=== PATIENT | female | born 1975 | race Caucasian/White ===

== ENCOUNTER 2016-08-07 07:55 | Day surgery (SDC) | payer OTHER ==
--- NOTE | 2016-07-31 15:50 | HP ---
DATE OF ADMISSION: 08/07/2016. This patient is scheduled for Same Day Surgery admission by Dr. Magana. DATE OF PREOPERATIVE HISTORY AND PHYSICAL EXAMINATION: Saturday, July 30, 2016. ATTENDING SURGEON: Dr. Zachary Magana (dictated by Regi Adams NP). CHIEF COMPLAINT: Right upper quadrant abdominal pain. HISTORY OF PRESENT ILLNESS: The patient is a 40-year-old female known to Dr. Magana, status post laparoscopic Nikole-en-Y gastric bypass 09/06/2015. More recently, she has had several episodes of right upper quadrant abdominal pain radiating to her back and across her abdomen. The episodes last approximately 20 minutes. She denies any nausea or vomiting. She has loose bowel movements normally and this was unchanged. She denied any fever or chills or dysuria, and does not recall any provoking or palliating factors. She denies any jaundice, tea- colored urine, or david-colored stools. She underwent gallbladder ultrasound which revealed cholelithiasis, but no acute changes, no pericholecystic fluid or gallbladder wall thickening. Dr. Magana has reviewed the findings with the patient and has recommended laparoscopic cholecystectomy as a same day surgery procedure. Dr. Magana discussed the nature of the procedure, the rationale for the procedure, the relevant risks and benefits, and today I reviewed the typical postoperative care and recovery. The patient has had a chance to ask questions and stated that she understands the information and is satisfied with the answers given to her questions. She will sign surgical consent on the day of surgery. PAST MEDICAL HISTORY: Morbid obesity; mild obstructive sleep apnea, resolved; type 2 diabetes, resolved; borderline hypertension, resolved. PAST SURGICAL HISTORY: Laparoscopic Nikole-en-Y gastric bypass by Dr. Magana 01/2016, she has lost 88 pounds postoperatively; D and C and section times two, both via low transverse incision. MEDICATIONS: 1. Multivitamins, Flintstones chewable two tablets daily. 2. Vitamin B12 daily. 3. Sertraline 50 mg p.o. daily. ALLERGIES: No known drug allergies. FAMILY HISTORY: Negative for anesthesia complications, bleeding tendencies, or clotting disorders. SOCIAL HISTORY: She is and has two children. 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 She denies the use of tobacco and rarely drinks alcohol and denies the use of other substances. REVIEW OF SYSTEMS: She denies any recent illnesses. She denies any respiratory symptoms. She denies any history of anesthesia complications. She denies any cardiovascular symptoms. She denies any history of deep vein thrombosis or pulmonary embolism. She denies any other gastrointestinal symptoms, other than described in history of present illness. She denies any genitourinary symptoms. She denies any bleeding tendencies and has never received a blood transfusion. She denies any neurological conditions or complaints. Her last menstrual period was around the first of July 2016 and her periods are regular. She is up-to-date within the past year for breast and pelvic exams. PHYSICAL EXAMINATION GENERAL: The patient is a 40-year-old female, well-developed, well-nourished, in no acute distress. VITAL SIGNS: Height 62 inches, weight 139 pounds. Blood pressure 120/76, pulse 72 and regular, respiratory rate 16, temperature 98.8 tympanic. Body mass index 25.4. SKIN: Warm, dry, anicteric. HEENT: Benign, anicteric sclerae. NECK: Supple, no cervical lymphadenopathy, no thyromegaly. BACK: No CVA tenderness. LUNGS: Breath sounds bilaterally clear and equal. HEART: Regular rate and rhythm. No murmurs or rubs appreciated. ABDOMEN: Active bowel sounds, soft and nondistended. Nontender throughout. Negative Eagle sign. No obvious masses, organomegaly, or ventral hernias. Surgical scars are present. EXTREMITIES: Warm without edema or skin ulcerations. PELVIC: Exam deferred. RECTAL: Exam deferred. NEUROLOGIC: Alert and oriented times three, steady gait. IMPRESSION: Symptomatic cholelithiasis. PLAN: Same Day Surgery admission to Dr. Magana' service on Monday, August 072016 for laparoscopic cholecystectomy. SWETHA ADAMS NP CC: Dr. Wasserman* [id number]/[facility] #: [id number] MTDD
[~2016-08-07 07:55] MED LIST: Buffered Lidocaine 1% SYR 3ML* 3 ML/SYR SYRINGE INTRADERM ONE
[2016-08-07] MEDS ORDERED: ceFAZolin 2 GM PREMIX (*) 2 GM/50 ML BAG IVPB ONE (08:15)
[2016-08-07] MEDS ORDERED: Buffered Lidocaine 1% SYR 3ML* 3 ML/SYR SYRINGE ONE (08:15)
[2016-08-07 08:39] LABS: UR Preg Internal Control QC Line Present
[2016-08-07] MEDS ORDERED: fentaNYL* 50 MCG/ML 2 ML VIAL (100 MCG VIAL) ONE ×4 (09:27→13:47)
[2016-08-07] MEDS ORDERED: Midazolam* 1 MG/ML 2 ML VIAL (2 MG) ONE (09:27)
[2016-08-07] MEDS ORDERED: Bupivacaine 0.5% W/EPI SDV* 30 ML VIAL ONE (10:18)
[2016-08-07] MEDS ORDERED: Ketorolac INJ* 30 MG/ML 1 ML VIAL ONE (10:38)
[2016-08-07] MEDS ORDERED: Lidocaine 2% PF * 5 ML VIAL ONE (10:38)
[2016-08-07] MEDS ORDERED: Propofol* 10 MG/ML 20 ML BTL IV PUSH ONE (10:38)
[2016-08-07] MEDS ORDERED: Dexamethasone IV* 4 MG/ML 1 ML (4 MG) ONE (10:38)
[2016-08-07] MEDS ORDERED: Rocuronium* 10 MG/ML VIAL ONE (10:38)
[2016-08-07] MEDS ORDERED: Ondansetron INJ* 2 MG/ML VIAL ONE (10:38)
[2016-08-07] MEDS ORDERED: Famotidine IV* 10 MG/ML 2 ML (20 mg) ONE (10:38)
[2016-08-07] MEDS ORDERED: Acetaminophen TAB* 325 MG PO PRN (10:51)
[2016-08-07] MEDS ORDERED: DiMENhydriNATE IV* 50 MG/ML VIAL IV PUSH PRN (10:51)
[2016-08-07] MEDS ORDERED: HYDROcodone/ACETAMIN 5-325 MG* 1 TAB PO PRN (10:51)
[2016-08-07] MEDS ORDERED: Ondansetron INJ* 2 MG/ML VIAL IV PRN (10:51)
[2016-08-07] MEDS ORDERED: PROCHLORPERAZINE INJ 5 MG/ML 2 ML VIAL IV PRN (10:51)
[2016-08-07] MEDS ORDERED: HYDROcodone/ACET. 7.5/325 LIQ* 15 ML UDC PO PRN (12:03)
[2016-08-07] MEDS: fentaNYL* 50 MCG/ML 2 ML VIAL (100 MCG VIAL) IV PRN ×4 (12:13→12:28)
[2016-08-07] MEDS ORDERED: HYDROcodone/ACETAMIN 5-325 MG* 1 TAB ONE ×2 (13:18)
[2016-08-07 13:30] VITALS: BP 129/81
--- NOTE | 2016-08-08 04:24 | OP ---
DATE OF OPERATION: 08/07/16 [facility] DATE OF : 77 SURGEON: Zachary Magana MD PROCESS MECHANIC: Dr. Henson. ANESTHESIOLOGIST: Dr. Young. ANESTHESIA: General endotracheal. PRE-OP DIAGNOSIS: Symptomatic cholelithiasis. POST-OP DIAGNOSIS: Symptomatic cholelithiasis and internal hernia. OPERATIVE PROCEDURE: Laparoscopic cholecystectomy and laparoscopic repair of internal hernia. ESTIMATED BLOOD LOSS: Minimal. IV FLUIDS: 1.5 L crystalloids. SPECIMEN: Gallbladder. DRAINS: None. COMPLICATIONS: None. COUNTS: The instrument, needle, and sponge counts were correct. DESCRIPTION OF PROCEDURE: The patient was brought to the operating room, placed on table supine. Sequential compression devices were placed on both lower extremities. General anesthesia was administered. The abdomen was prepped and draped in the usual sterile fashion. She received appropriate intravenous antibiotics. Time-out was performed. Local anesthetic was infiltrated at the incision sites prior to each incision. The pneumoperitoneum was achieved using a Veress needle through a right upper quadrant incision after tenting up the rectus fascia. Approximately 50 mmHg with CO2 the Veress needle was removed and a 5 mm optical trocar was used to access the peritoneal cavity. Inspection of the underlying viscera revealed no injuries. Under direct visualization, 5 mm trocars were placed in the subxiphoid position and 2 additionally in the right upper quadrant laterally. The gallbladder was identified. It did not appear to be acutely inflamed. It was retracted superiorly by grasping the fundus laterally and inferiorly by grasping the infundibulum. The peritoneum investing the gallbladder was dissected away using a combination of sharp and blunt dissection cautery. Medial and lateral dissection was performed along the infundibular cystic duct junction and the cystic duct was identified. Dissection then proceeded along the medial aspect of the gallbladder to identify the cystic artery. Both the cystic artery and cystic duct were each bluntly dissected out and a critical view obtained. The cystic artery and cystic duct were doubly clipped and divided and then the gallbladder was freed from its attachments to the liver using the electrocautery and staying in an avascular plane. There was an inadvertent entry into the gallbladder and spillage of bile was controlled with direct pressure and then use of the endoscopic suction. This was used to evacuate the gallbladder of all bile and allowed to decompress. At that point, the gallbladder was freed using the cautery and the gallbladder was removed from the abdomen and submitted as pathology. Hemostasis of the gallbladder bed was assured. Clips were noted to be intact. At this time, a decision was made to review the gastric bypass anatomy. The inspection of the liver revealed a gastric jejunal anastomosis to be normal in appearance. The liver was traced down to the jejunojejunostomy. There was a hernia defect behind the alimentary limb. There was no hernia defect at the jejunojejunostomy mesenteric site. The small bowel was run distally all the way to the ileum and no abnormalities were noted. To complete the repair of the internal hernia, the peritoneum of the Nikole limb was tacked to the peritoneum of the transverse colon using interrupted 2-0 silks. Subsequently after assuring hemostasis, the ports were removed, carbon dioxide was released. The wounds were closed with 4-0 Monocryl to approximate the skin edges. Steri-Strips were applied. The patient tolerated the procedure well. He was extubated and transferred to Recovery in stable condition. CC: Karthik Wasserman MD* [id number]/[facility] #: [id number] MANUEL
== END 2016-08-07 14:12 | disposition home or self-care (01) ==
LOC: OR 07:55
PROVIDERS: ATTEND Surgery
DX: K80.10 Calculus of gallbladder with chronic cholecystitis without obstruction (principal); K45.8 Other specified abdominal hernia without obstruction or gangrene; Z98.84 Bariatric surgery status; K76.0 Fatty (change of) liver, not elsewhere classified
CPT/HCPCS: 81025; 88304; C1776; J0690; J1100; J1885; J2250; J2405; J2704; J3010

== ENCOUNTER 2017-09-02 07:54 | Emergency (ER) | payer OTHER ==
[2017-09-02] MEDS ORDERED: HYDROcodone/ACETAMIN 5-325 MG* 1 TAB PO ONE (08:33)
--- NOTE | 2017-09-02 09:27 | RAD ---
HISTORY: Coccygeal pain, status post trauma COMPARISONS: None VIEWS: 3, frontal, outlet, and lateral views of the sacrum and coccyx FINDINGS: BONE DENSITY: Normal. BONES: There is linear lucency consistent with a nondisplaced transverse fracture of the first ostial vertebral body. There is anterolateral marginal osteophyte formation at L5-S1 with mild reactive end plate changes. JOINTS: There is no arthropathy. ALIGNMENT: There is no dislocation. SOFT TISSUES: Unremarkable. OTHER FINDINGS: There is loss of intervertebral disc height. IMPRESSION: NONDISPLACED TRANSVERSE COCCYGEAL FRACTURE. DEGENERATIVE DISC DISEASE AT L5-S1.
[2017-09-02 10:34] VITALS: BP 133/91
--- NOTE | 2017-09-02 11:34 | UC ---
Danial Thorne Jennifer, scribed for Ashley Haji DO on 09/02/17 at 0935 . Back Pain HPI - HPI Summary HPI Summary: The patient is a 41 year old female who presents to with pain in her tail bone and right butt after a sledding accident at 17:00 yesterday. The patient reports the pain as a 7 or 8/10 and that standing aggravates the pain. She is able to ambulate. - History of Current Complaint Chief Complaint: UCBackPain Stated Complaint: TAIL BONE INJURY Time Seen by Provider: 09/02/17 08:28 Hx Obtained From: Patient Hx Last Menstrual Period: 3 weeks ago Onset/Duration: Sudden Onset, Lasting Hours - Began last night at 17:00 - 16 hours ago, Still Present Timing: Constant Severity Initially: Moderate Severity Currently: Moderate Pain Intensity: 8 Pain Scale Used: 0-10 Numeric Back Pain: Is Discrete @ - Tail pain and right butt Aggravating Factor(s): Other - Standing Alleviating Factor(s): Rest Associated Signs And Symptoms: Positive: Other - Pain in tail bone and right butt - Allergies/Home Medications Allergies/Adverse Reactions: Allergies Allergy/AdvReac Type Severity Reaction Status Date / Time morphine Allergy Severe Anxiety Verified 09/02/17 08:06 mold Allergy Mild See Comment Verified 09/02/17 08:06 pollen extracts Allergy Mild See Comment Verified 09/02/17 08:06 Home Medications: Home Medications Acetaminophen [Tylenol Extra Strength] 2 tab PO Q4HR PRN 09/02/17 [History Confirmed 09/02/17] PMH/Surg Hx/FS Hx/Imm Hx Previously Healthy: Yes - Used to have HTN, DM, but no longer after bariatric surgery - Surgical History Surgical History: Yes Surgery Procedure, Year, and Place: c-sect x2. gastric bypass 08/2015. - CHOLECYTECTOMY. 2007 [facility] C - Family History Known Family History: Positive: Diabetes - Father - Social History Alcohol Use: None Substance Use Type: None Smoking Status (MU): Never Smoked Tobacco - Immunization History Most Recent Influenza Vaccination: 2014 Most Recent Tetanus Shot: UNKNOWN Most Recent Pneumonia Vaccination: NONE Review of Systems Constitutional: Negative - Chills Musculoskeletal: Other: - Pain in tail bone and right buttock All Other Systems Reviewed And Are Negative: Yes Physical Exam - Summary Physical Exam Summary: Appearance: Well-Appearing, No Pain Distress, Well-Nourished Eyes: conjunctiva clear, no discharge ENT: Hearing grossly normal, no muffled/hoarse voice. Neck: Normal, Supple Respiratory/Lung Sounds: Lungs clear, Normal breath sounds, No respiratory distress, No accessory muscle use Cardiovascular: RRR, No murmur Abdomen: Nontender, Soft, no guarding, not distended Bowel Sounds: Present Musculoskeletal: Tender on the coccyx. I palpated the ilium and ischium which did not elicit any tenderness. Hips are stable. Exquisite tenderness was elicited on the coccyx itself. Neurological: Alert, muscle tone normal Psychiatric:Normal, age appropriate behavior Skin: Normal, Warm, Dry, Normal color Triage Information Reviewed: Yes Vital Signs: Initial Vital Signs Temp 98.9 F 09/02/17 08:01 Pulse 81 09/02/17 08:01 Resp 18 09/02/17 08:01 BP 128/86 09/02/17 08:01 Pulse Ox 100 09/02/17 08:01 Vital Signs Reviewed: Yes Diagnostics - Laboratory Diagnostic Studies Completed/Ordered: Sacrum and Coccyx X-ray. Interpreted by a radiologist. IMPRESSION:NONDISPLACED TRANSVERSE COCCYGEAL FRACTURE. DEGENERATIVE DISC DISEASE AT L5-S1. Dr. Haji has reviewed this report. Back Pain Course/Dx - Course Course Of Treatment: In the [facility] course the patient was given Hydrocodone. Sacrum and Coccyx XR showed NONDISPLACED TRANSVERSE COCCYGEAL FRACTURE. DEGENERATIVE DISC DISEASE AT L5-S1. Patient will be discharged with prescription for Hydrocodone and follow up from PCP. The patient is agreeable with this plan. Medications reviewed. Allergies reviewed. - Differential Dx/Diagnosis Provider Diagnoses: Coccyx fracture Discharge - Discharge Plan Condition: Stable Disposition: HOME Prescriptions: HYDROcodone/ACETAMIN 5-325 MG* [[place] 5-325 TAB*] 1 tab PO Q6H PRN #14 tab MDD 4 TABS PRN Reason: Pain Patient Education Materials: Coccyx Injury (ED) Forms: *Work Release Referrals: Karthik Wasserman MD [Primary Care Provider] - (Follow up in 3-4 days) Additional Instructions: IT IS VERY IMPORTANT TO AVOID CONSTIPATION. INCREASE FIBER AND USE LAXATIVES IF NEEDED TO STAY AHEAD OF CONSTIPATION. The documentation as recorded by the Danial monge Jennifer accurately reflects the service I personally performed and the decisions made by me, Ashley Haji DO.
== END 2017-09-02 10:21 | disposition home or self-care (01) ==
LOC: UCEAST 07:54
DX: S32.2XXA Fracture of coccyx, initial encounter for closed fracture (principal); X58.XXXA Exposure to other specified factors, initial encounter; Y93.23 Activity, snow (alpine) (downhill) skiing, snowboarding, sledding, tobogganing and snow tubing; Y92.9 Unspecified place or not applicable; M51.37 Other intervertebral disc degeneration, lumbosacral region; Z90.49 Acquired absence of other specified parts of digestive tract; Z98.84 Bariatric surgery status; Z88.5 Allergy status to narcotic agent
CPT/HCPCS: 72220; 99212; G0463

== ENCOUNTER 2019-06-26 10:40 | Day surgery (SDC) | payer OTHER ==
[~2019-06-26 10:40] MED LIST changes: -Buffered Lidocaine 1% SYR 3ML* 3 ML/SYR SYRINGE INTRADERM ONE; +Buffered Lidocaine 1% SYRIN* 1 ML/SYRINGE INTRADERM ONE; +Famotidine IV* 10 MG/ML 2 ML (20 mg) IV ONE; +Lactated Ringers 1000 ML Bag* 1,000 ML IV SCH
[2019-06-26] MEDS ORDERED: Famotidine IV* 10 MG/ML 2 ML (20 mg) ONE (12:33)
[2019-06-26] MEDS ORDERED: fentaNYL* 50 MCG/ML 2 ML VIAL (100 MCG VIAL) ONE ×2 (12:43→14:20)
[2019-06-26] MEDS ORDERED: Lidocaine 2% PF * 5 ML VIAL ONE (12:43)
[2019-06-26] MEDS ORDERED: Dexamethasone IV* 4 MG/ML 1 ML (4 MG) ONE (12:43)
[2019-06-26] MEDS ORDERED: Midazolam* 1 MG/ML 5 ML VIAL (5 MG) ONE (12:43)
[2019-06-26] MEDS ORDERED: Propofol* 10 MG/ML 20 ML BTL ONE (12:43)
[2019-06-26] MEDS ORDERED: Ondansetron INJ* 2 MG/ML VIAL ONE ×2 (12:43→14:17)
[2019-06-26 13:02] LABS: Hematocrit 36 % (35-47); Hemoglobin 12.3 g/dL (12.0-16.0); Mean Corpuscular HGB Conc 34 g/dL (31-36); Mean Corpuscular Hemoglobin 31 pg (27-31); Mean Corpuscular Volume 91 fL (80-97); Mean Platelet Volume 7.9 fL (7.4-10.4); Platelet Count 276 10^3/uL (150-450); Red Cell Distribution Width 13 % (10-15); White Blood Count 5.2 10^3/uL (3.5-10.8)
[2019-06-26] MEDS ORDERED: fentaNYL* 50 MCG/ML 2 ML VIAL (100 MCG VIAL) IV PRN (13:05)
[2019-06-26] MEDS ORDERED: Ondansetron INJ* 2 MG/ML VIAL IV PRN (13:05)
[2019-06-26] MEDS ORDERED: Naloxone* 0.4 MG/ML 1 ML VIAL IV PRN (13:05)
[2019-06-26] MEDS ORDERED: oxyCODONE/Acetamin 5/325 MG* TAB PO PRN (14:03)
[2019-06-26 15:25] VITALS: BP 109/73
--- NOTE | 2019-06-27 01:32 | OP ---
CC: [facility]* OPERATIVE REPORT: DATE OF OPERATION: 06/26/19 - [facility] DATE OF : 77 SURGEON: Dr. Mendieta. ANESTHESIOLOGIST: Dr. Kramer. ANESTHESIA: General endotracheal anesthesia. PRE-OPERATIVE DIAGNOSES: Menorrhagia, endometrial polyp, anemia. POST-OPERATIVE DIAGNOSES: Menorrhagia, endometrial polyp, anemia. OPERATIVE PROCEDURE: Dilation, hysteroscopy, MyoSure polypectomy, curettage. ESTIMATED BLOOD LOSS: Minimal, less than 20 cc. SPECIMEN: Endometrial curettings and endometrial polyps. FLUIDS: Per Anesthesia. DRAINS: None. FINDINGS: Midline anteverted uterus, uterus sounded to 9. There was a polyp near the right tubal ostia, another polyp on the anterior uterine wall. There was a slight arcuate shape to the fundus. No adnexal masses palpated. COMPLICATIONS: None. COUNTS: Sponge count correct x2. CONDITION: The patient tolerated the procedure well and was brought to the recovery room, awake and in stable condition. DESCRIPTION OF PROCEDURE: The patient was brought to the operating room. When general anesthesia was found to be adequate, the patient was prepped and draped in the usual sterile fashion under dorsal lithotomy. Exam under anesthesia was formed. Weighted speculum was placed in the vagina. The anterior lip of the cervix was grasped with a single-tooth tenaculum and the cervix was gently and easily dilated with the graduated [place] dilators. The MyoSure hysteroscopy was introduced with the above findings noted. The MyoSure LITE was used to remove the polyps that were seen. Curettage was then performed. Endometrial polyps and endometrial curettings were sent to pathology. The single-tooth tenaculum was removed from the cervix. Excellent hemostasis was noted. All instruments were removed from the vagina and the patient was brought to the recovery room, awake and in stable condition. [id number]/[facility] #: [id number] MTDD
== END 2019-06-26 15:26 | disposition home or self-care (01) ==
LOC: OR 10:40
PROVIDERS: ATTEND Obstetrics & Gynecology
DX: N92.0 Excessive and frequent menstruation with regular cycle (principal); N84.0 Polyp of corpus uteri; D50.0 Iron deficiency anemia secondary to blood loss (chronic); K76.0 Fatty (change of) liver, not elsewhere classified; F41.9 Anxiety disorder, unspecified
CPT/HCPCS: 36415; 81025; 85027; 88305; J1100; J2250; J2405; J2704; J3010